=== PATIENT | male | born 1995 | race Asian ===

== ENCOUNTER 2019-03-18 17:04 | Emergency (ER) | payer BC, OTHER, SELFPAY | END 2019-03-18 17:40 | disposition home or self-care (01) | LOC: ERS 17:04 | DX: S69.92XA Unspecified injury of left wrist, hand and finger(s), initial encounter (principal); X58.XXXA Exposure to other specified factors, initial encounter; Y93.69 Activity, other involving other sports and athletics played as a team or group | CPT/HCPCS: 99281 ==